=== PATIENT | female | born 1990 | race Caucasian/White ===

== ENCOUNTER 2017-05-14 17:05 | Emergency (ER) | payer MEDICAID ==
[~2017-05-14] VITALS: Ht 160 cm; Wt 59.2 kg
[2017-05-14] MEDS ORDERED: PROCHLORPERAZINE 5 MG/ML, 2ML IVPush ONE (17:30)
[2017-05-14] MEDS ORDERED: KETOROLAC 30 MG/1 ML IVPush ONE (17:30)
[2017-05-14] MEDS ORDERED: SODIUM CHLORIDE FLUSH 10ML SYR IVF ONE (17:30)
[2017-05-14] MEDS ORDERED: SODIUM CHLORIDE 0.9% 1,000ML IVBOLUS ONE (17:30)
[2017-05-14] MEDS ORDERED: DIPHENHYDRAMINE 50 MG/ML, 1ML IVPush ONE (17:30)
[2017-05-14] MEDS ORDERED: PROCHLORPERAZINE 5 MG/ML, 2ML ONE (17:37)
[2017-05-14] MEDS ORDERED: KETOROLAC 30 MG/1 ML ONE (17:37)
[2017-05-14] MEDS ORDERED: DIPHENHYDRAMINE 50 MG/ML, 1ML ONE (17:38)
[2017-05-14 17:57] LABS: BASOPHILS # (AUTO) 0.03 x10^3/uL (0-0.1); BASOPHILS % (AUTO) 0 % (0-1); EOSINOPHILS % (AUTO) 3 % (1-7); LYMPHOCYTES # (AUTO) 2.18 x10^3/uL (1-3.4); LYMPHOCYTES % (AUTO) 32 % (22-44); MD NO; MEAN CORPUSCULAR HEMOGLOBIN 30.6 pg (27.0-34.8); MEAN CORPUSCULAR HGB CONC 33.8 g/dL (32.4-35.8); MEAN CORPUSCULAR VOLUME 90.6 fL (80-100); MEAN PLATELET VOLUME 8.8 fL (7.4-10.4); MONOCYTES # (AUTO) 0.44 x10^3/uL (0.2-0.8); MONOCYTES % (AUTO) 6 % (2-9); NEUTROPHILS # (AUTO) 4.01 x10^3/uL (1.8-6.8); NEUTROPHILS % (AUTO) 59 % (42-75); PLATELET COUNT 243 x10^3/uL (130-400); RED BLOOD COUNT 4.82 x10^6/uL (3.82-5.3); RED CELL DISTRIBUTION WIDTH 12.6 % (9.6-15.2)
[2017-05-14 18:11] LABS: ALBUMIN 4.5 g/dL (3.4-5.0); ANION GAP 10 mmol/L (5-15); CHLORIDE 106 mmol/L (98-107); CREATININE 0.75 mg/dL (0.55-1.02)
[2017-05-14 19:52] VITALS: BP 105/55
== END 2017-05-14 19:55 | disposition home or self-care (01) ==
LOC: ED 19:30
DX: G44.209 Tension-type headache, unspecified, not intractable (principal); F17.200 Nicotine dependence, unspecified, uncomplicated; E01.0 Iodine-deficiency related diffuse (endemic) goiter
CPT/HCPCS: 36415; 70450; 80048; 82040; 84443; 84703; 85025; 96361; 96374; 96375; 99285; J0780; J1885; J7030